=== PATIENT | female | born 1935 | race Caucasian/White ===

== ENCOUNTER 2016-10-28 07:39 | Emergency (ER) | payer MEDICARE, BC ==
[~2016-10-28] VITALS: Ht 167.6 cm; Wt 68.0 kg
[2016-10-28 08:11] LABS: BASO % 0.3 % (0.0-1.0); EOS % 0.3 % (1.0-4.0); HEMOGLOBIN 12.5 g/dl (12.0-16.0); LYMPH # 0.9 10*3/uL (1.3-4.4); LYMPH % 12.4 % (27.0-41.0); MEAN CELL VOLUME 91.6 fl (81.0-99.0); MEAN CORPUSCULAR HGB 30.1 pg (27.0-31.0); MEAN CORPUSCULAR HGB CONC 32.9 g/dl (33.0-37.0); MEAN PLATELET VOLUME 9.2 fl (9.6-12.3); MONO # 0.3 10*3/uL (0.1-1.0); MONO % 4.5 % (3.0-9.0); NEUT # 5.8 10*3/uL (2.3-7.9); NEUT % 82.1 % (47.0-73.0); PLATELET COUNT AUTOMATED 203 10*3/uL (130-400); RED BLOOD COUNT 4.15 10*6/uL (4.10-5.10); WHITE BLOOD COUNT 7.1 10*3/uL (4.8-10.8)
[2016-10-28 08:25] LABS: ALBUMIN 3.6 gm/dl (3.1-4.5); ALKALINE PHOSPHATASE 58 U/L (45-117); BUN 21 mg/dl (7-24); CHLORIDE 103 mmol/L (98-107); CREATININE 0.58 mg/dL (0.55-1.02); POTASSIUM 3.6 mmol/L (3.5-5.1); SGOT/AST 13 IU/L (3-35); SGPT/ALT 18 U/L (12-78); SODIUM 138 mmol/L (136-145); TOTAL PROTEIN 7.1 gm/dL (6.4-8.2)
[2016-10-28 10:39] LABS: BILIRUBIN NEGATIVE (NEGATIVE); BLOOD NEGATIVE (NEGATIVE); CLARITY SL CLOUDY (CLEAR); COLOR YELLOW (YELLOW); GLUCOSE NEGATIVE (NEGATIVE); KETONE 2+ (NEGATIVE); LEUKO ESTERASE 2+ (NEGATIVE); NITRITE NEGATIVE (NEGATIVE); UROBILINOGEN 0.2 E.U./dl (0.2-1.0)
[2016-10-28 10:46] LABS: BACTERIA 2+; WBC 41-50 wbc/hpf (0-5)
[2016-10-28] MEDS ORDERED: SEPTDS PO (11:02)
[2016-10-28] MEDS ORDERED: GOOD NEIGHBOR M25 MG PO (11:02)
== END 2016-10-28 11:53 | disposition home or self-care (01) ==
LOC: ED 07:39
PROVIDERS: Emergency Medicine
DX: N39.0 Urinary tract infection, site not specified (principal); R31.9 Hematuria, unspecified; H83.09 Labyrinthitis, unspecified ear; Z88.1 Allergy status to other antibiotic agents

== ENCOUNTER → 2023-05-07 | Outpatient (CLI) | payer MEDICARE, BC ==
[~2023-05-07] MED LIST: GOOD NEIGHBOR M25 MG PO; LISINOPRIL10 M1 PO; MASON NATURAL325 MG PO; SEPTDS PO; Synthroid,Levo25 MCG PO
[2023-05-07 10:34] LABS: BASO % 0.3 % (0.0-1.0); EOS % 0.7 % (1.0-4.0); HEMATOCRIT 25.8 % (37.0-47.0); LYMPH # 1.1 10*3/uL (1.3-4.4); MEAN CELL VOLUME 94.2 fl (81.0-99.0); MEAN CORPUSCULAR HGB 30.7 pg (27.0-31.0); MEAN CORPUSCULAR HGB CONC 32.6 g/dl (33.0-37.0); MEAN PLATELET VOLUME 9.7 fl (9.6-12.3); MONO # 0.6 10*3/uL (0.1-1.0); MONO % 10.4 % (3.0-9.0); NEUT # 4.1 10*3/uL (2.3-7.9); NEUT % 69.1 % (47.0-73.0); PLATELET COUNT AUTOMATED 246 10*3/uL (130-400); RED BLOOD COUNT 2.74 10*6/uL (4.10-5.10); RED CELL DISTRI WIDTH 14.2 % (0-14.5)
== END | disposition home or self-care (01) ==
LOC: LAB 09:36
PROVIDERS: ATTEND Registered Nurse
DX: D64.9 Anemia, unspecified (principal); K92.2 Gastrointestinal hemorrhage, unspecified